=== PATIENT | female | born 1955 | race Caucasian/White ===

== ENCOUNTER → 2016-11-12 | Outpatient (CLI) | payer MEDICARE, MEDICAID ==
[~2016-11-12] MED LIST: ADVAIR 500-501 EACH INH; AMITIZA24 MCG PO; CIPRO500 MG PO; COUMADIN ** IA5 MG PO; CPAP INH; CYMBALTA60 MG PO; DELTASONE10 MG PO; DOXEPIN HCL100 MG PO; FLAGYL500 MG PO; FLEXERIL10 MG PO; FLORASTOR250 MG PO; GARCINIA CAMBO1 EACH PO; HAIR, SKIN & N1 EACH PO; IBUPROFEN800 MG PO; INCRUSE ELLI62.5 MCG INH; KLONOPIN1 MG PO; LASIX40 MG PO; LOVENOX 8080 MG/0.8 SUB-Q; LYRICA300 MG PO; MELATONIN10 M2 PO; MELATONIN5 M2 PO; NEXIUM40 MG PO; NORCO 10-325 T1 EACH PO; OXYGEN M-15 INH; PROAIR HFA8.5 GM INH; PROVENTIL OR V6.7 GM INH; PROVIGIL200 MG PO; STOOL SOFTENER100 MG PO; TYLENOL EXTRA500 MG PO; TYLENOL325 MG PO; VESICARE10 MG PO; WELLBUTRIN XL150 MG PO; ZOFRAN4 MG PO
--- NOTE | ~2016-11-12 | ECHO ---
Transthoracic Echocardiography Report (TTE) Demographics Patient Name PEE AU Date of Study 11/12/2016 Patient Number [id number] Visit Number [id number] Date of 1955 Room Number Accession Number [id number] Gender Female Age 61 year(s) Referring Virgie BEARDEN Fish Hatchery Inspector Kailey Monzon [facility] Physician Dm Amezquita Physician Interpreting Kelvin Henderson Sewing Teacher Physician Sunny INFANTE Supervising Ordering Physician Virgie BEARDEN MD/MLP Nurse Stress [employer] Packing Mixer Conclusions Contractility Score Summary Normal Left Ventricular contractility was noted. Summary Technically difficult exam due to lung interference. The estimated left ventricular ejection fraction is 50%. The left ventricle is normal in size . Mild concentric left ventricular hypertrophy. Diastolic assessment reveals Grade I diastolic dysfunction. Mildly reduced right ventricular function.Moderately dilated right ventricle. Mild tricuspid regurgitation by color Doppler. There is moderate to severe pulmonary hypertension. The pulmonary pressure (RVSP) is 61 mmHg. Procedure Type of Study TTE procedure:2D Echocardiogram, M-Mode, Doppler , Color Doppler. Procedure Date Date: 11/12/2016 Start: 02:05 PM Study Location: Echo Lab Technical Quality: Fair due to lung interference. Indications:Decreased EF. Appropriate Use Criteria: 9 Patient Status: Routine HR: 91 bpm BP: 140/68 mmHg M-Mode/2D Measurements LV Diastolic Dimension: 4.55 cm LV Systolic Dimension: 3.29 cm LV Septum Diastolic: 1.1 cm LV PW Diastolic: 1.13 cm AO Root Dimension: 2.8 cm Cardiac Output: 4.13 l/min LA Dimension: 3.5 cm LVOT: 1.7 cm LVOT VTI: 20 cm RV Base: 4.48 cm LV Stroke volume: 45.37 ml RV Length: 6.72 cm TAPSE: 1.48 cm TDI-S': 8.66 cm/s Doppler Measurements AV Peak Velocity: 1.3 m/s MV Peak E-Wave: 0.56 m/s AV Peak Gradient: 6.76 mmHg MV Peak A-Wave: 0.9 m/s AV Mean Gradient: 4 mmHg MV E/A Ratio: 0.62 LVOT Peak Velocity: 0.97 m/s MV P1/2t: 79 msec TR Gradient:53.58 mmHg PV Peak Velocity: 0.85 m/s Estimated RAP:3 mmHg PV Peak Gradient: 2.87 mmHg Estimated RVSP: 57 mmHg Estimated PASP: 56.58 mmHg E' Septal Velocity: 0.06 m/s A' Septal Velocity: 0.11 m/s E' Lateral Velocity: 0.12 m/s A' Lateral Velocity: 0.14 m/s Findings Left Ventricle The left ventricle is normal in size . Mild concentric left ventricular hypertrophy. Diastolic assessment reveals Grade I diastolic dysfunction. Right Ventricle Mildly reduced right ventricular function.Moderately dilated right ventricle. Left Atrium Normal left atrial size. Right Atrium Normal right atrial size. IVC measures 1.79 cm with inspiratory collapse. Mitral Valve Trivial mitral regurgitation by color Doppler. Aortic Valve Normal aortic valve structure and function. Tricuspid Valve Mild tricuspid regurgitation by color Doppler. There is moderate to severe pulmonary hypertension. The pulmonary pressure (RVSP) is 61 mmHg. Pulmonic Valve The pulmonic valve is not well visualized. Pericardial Effusion No evidence of pericardial effusion. Miscellaneous Visualized portions of the aortic root and ascending aorta appear normal in size. Pleural Effusion There is no pleural effusion. Contractility Score LV regional wall motion:(0-Non visualized 1-Normal 2-Hypokinesis 3-Akinesis 4-Dyskinesis 5-Aneurysm) Signature dtt: Natalie Warren dtd: 11/12/16 [id number] Physician Self Edit
== END | disposition disaster alternative care site (69) ==
LOC: GCAR 13:49
DX: R93.1 Abnormal findings on diagnostic imaging of heart and coronary circulation (principal); I07.1 Rheumatic tricuspid insufficiency; I27.2 Other secondary pulmonary hypertension

== ENCOUNTER → 2016-12-09 | Outpatient (CLI) | payer MEDICARE, MEDICAID | END | disposition disaster alternative care site (69) | LOC: LFPA 14:07 | DX: R60.0 Localized edema (principal) ==

== ENCOUNTER 2017-02-25 13:44 | Emergency (ER) | payer MEDICARE, MEDICAID ==
--- NOTE | ~2017-02-25 | ER ---
PATIENT'S NAME: PEE AU [facility] AGE: 61 Y [address] ROOM: [place] [address] LOCATION: ED ADMIT DATE: 02/25/2017 ER/Outpatient Report DISCHARGE DATE: 02/25/2017 FAMILY PHYSICIAN: Dannielle Garvin ATTENDING PHYSICIAN: Harmony Macias Time of Patient's Arrival: 1344 hours. Time of Patient's Evaluation: 1345 hours. CHIEF COMPLAINT: Injuries from fall. HISTORY OF PRESENT ILLNESS: This is a 61-year-old female who presents to the ER via [facility], who suffered a ground level fall at [facility]. The patient tripped over a cart guide on the ground, fell backwards, striking her back and the back of her head on the ground. She denies losing consciousness. She states she is having some neck and some upper back pain with this. She also sustained a laceration to her posterior scalp. The patient denies any abdominal pain. She states she did not feel dizzy or lightheaded prior to fall. She denies any chest pain or any recent illnesses. She states she is up to date on her tetanus shot which she had 2 years ago. ALLERGIES: PLEASE SEE MEDICATION LIST IN NURSE'S NOTES. MEDICATIONS: Please see nurse's notes. PAST MEDICAL HISTORY: Fibromyalgia, COPD, restless legs syndrome, chronic fatigue, irritable bowel syndrome. She has had hysterectomy and neck fusion 1 year ago. She also has a history of perforated eardrum. SOCIAL HISTORY: She smokes a pack a day for last 40 years. Denies any drug or alcohol use. REVIEW OF SYSTEMS: All systems were reviewed and were negative with the exception of those discussed in the HPI. PHYSICAL EXAMINATION: VITAL SIGNS: Blood pressure is 107/56, pulse 89, respirations 20, temperature 96.9 degrees tympanically, and saturations 90% on room air. Genna Coma Score is 15. PATIENT'S NAME: PEE AU [facility] AGE: 61 Y [address] ROOM: [place], [place] [address] LOCATION: [facility] ADMIT DATE: 02/25/2017 ER/Outpatient Report DISCHARGE DATE: 02/25/2017 FAMILY PHYSICIAN: Dannielle Garvin ATTENDING PHYSICIAN: Harmony Macias GENERAL: Alert, calm, well-developed 61-year-old, in no acute distress. She is boarded in collar upon my initial examination. HEENT: Head: Normocephalic. Eyes: Pupils are equal and active to light. Ears: TMs display good light reflexes. Throat: No exudates erythema. She does display moist mucous membranes. LUNGS: Clear to auscultation bilaterally. HEART: Regular rate and rhythm. ABDOMEN: Soft, it is nontender. She has good bowel sounds throughout. EXTREMITIES: She has full range of motion of all limbs. I do have the EMS crew help me log roll the patient. She has no abrasions or cuts to her back. She does have some tenderness over her thoracic and cervical spine with palpation. She also has a 1.5 cm posterior scalp laceration. LABORATORY DATA AND X-RAYS: Labs, none were done. CT scan of the head, neck, and thoracic spine were done and were unremarkable and reported by Radiology. EMERGENCY ROOM COURSE: We did cleanse the laceration site with normal saline and repaired the laceration with jared. The patient did tolerate that well. IMPRESSION: 1. 1.5 cm posterior scalp laceration. 2. Neck and upper back pain from ground level fall. ASSESSMENT AND PLAN: We did place the patient in a soft collar for support. We will have her follow up with her primary care physician in 7 days for staple removal. She needs to ice any sore areas. I did give her prescription for [place] to use for any severe pain. The patient and patient's friend understand and agree with care. VIKKI PENA PA-C FOR MD DOUGLAS DENT/harpal /[id number] d: 02/25/[id number] t: 02/26/174, OUTPATIENT REPORT
== END 2017-02-25 15:24 | disposition disaster alternative care site (69) ==
LOC: GMED 13:44
PROC: 0HQ0XZZ Repair Scalp Skin, External Approach (ICD-10-PCS; principal; 2017-02-25)
DX: S01.01XA Laceration without foreign body of scalp, initial encounter (principal); M54.2 Cervicalgia; M54.6 Pain in thoracic spine; M79.7 Fibromyalgia; J44.9 Chronic obstructive pulmonary disease, unspecified; F17.210 Nicotine dependence, cigarettes, uncomplicated; Z90.710 Acquired absence of both cervix and uterus; Z88.8 Allergy status to other drugs, medicaments and biological substances; Z79.01 Long term (current) use of anticoagulants; Z79.899 Other long term (current) drug therapy; W01.198A Fall on same level from slipping, tripping and stumbling with subsequent striking against other object, initial encounter

== ENCOUNTER → 2017-02-25 | Outpatient (CLI) | payer MEDICARE, MEDICAID | END | disposition disaster alternative care site (69) | LOC: GAMB 13:21 | DX: M54.2 Cervicalgia (principal); S01.81XD Laceration without foreign body of other part of head, subsequent encounter; M54.9 Dorsalgia, unspecified; Z79.01 Long term (current) use of anticoagulants; Z79.899 Other long term (current) drug therapy; W22.8XXD Striking against or struck by other objects, subsequent encounter | CPT/HCPCS: A0422; A0425; A0429 ==